=== PATIENT | male | born 1980 | race Two or more races ===

== ENCOUNTER 2017-01-22 10:31 | Emergency (ER) | payer MEDICAID, OTHER, SELFPAY ==
[~2017-01-22] VITALS: Ht 167.6 cm; Wt 114.9 kg
[2017-01-22] MEDS ORDERED: SODIUM CHLORIDE 0.9% 1,000 ML IV ONE (11:02)
[2017-01-22] MEDS ORDERED: HYDROmorphone 1 MG/ML, 1ML ONE (11:21)
[2017-01-22] MEDS ORDERED: ONDANSETRON 2MG/ML, 2ML ONE (11:21)
[2017-01-22] MEDS ORDERED: HYDROmorphone 1 MG/ML, 1ML IVPush PRN (11:30)
[2017-01-22] MEDS ORDERED: SODIUM CHLORIDE FLUSH 10ML SYR IVF ONE (11:30)
[2017-01-22] MEDS ORDERED: ONDANSETRON 2MG/ML, 2ML IVPush ONE (11:30)
[2017-01-22 11:49] LABS: HEMOGLOBIN 16.4 g/dL (13.7-18.0); WHITE BLOOD COUNT 7.7 x10^3/uL (3.4-10)
[2017-01-22 12:00] LABS: ASPARTATE AMINO TRANSFERASE 12 U/L (15-37); BLOOD UREA NITROGEN 13 mg/dL (7-18)
[2017-01-22] MEDS ORDERED: MAALOX/HYOSCYAMINE/LIDOCAINE 45 ML BTL ONE (12:56)
[2017-01-22] MEDS ORDERED: MAALOX/HYOSCYAMINE/LIDOCAINE 45 ML BTL PO ONE (13:00)
[2017-01-22 13:33] VITALS: BP 111/67
== END 2017-01-22 13:36 | disposition home or self-care (01) ==
LOC: ED 13:30
DX: K29.00 Acute gastritis without bleeding (principal)
CPT/HCPCS: 36415; 74022; 76700; 80053; 81003; 83690; 85025; 96361; 96374; 96375; 99285; J1170; J2405; J7030